=== PATIENT | male | born 1960 | race Caucasian/White ===

== ENCOUNTER → 2016-10-22 | Outpatient (CLI) | payer OTHER ==
--- NOTE | 2016-10-22 15:13 | CT ---
EXAMINATION TYPE: CT brain wo con DATE OF EXAM: 10/22/2016 COMPARISON: Prior CT brain 07/15/2015 HISTORY: Abn gait, Lt facial droop, history of TIAs CT DLP: 1168 mGycm Automated exposure control for dose reduction was used. FINDINGS: There is no hemorrhage or hydrocephalus. Mild cortical atrophy is stable. Brain density is unchanged. Cerebral vascular calcifications noted along the internal carotid artery on the right. IMPRESSION: EXAM IS STABLE, NO ACUTE BRAIN ABNORMALITY IS EVIDENT
== END | disposition home or self-care (01) ==
LOC: RADCTMAIN 12:17
PROVIDERS: ATTEND Family Medicine
DX: R26.89 Other abnormalities of gait and mobility (principal)
CPT/HCPCS: 70450

== ENCOUNTER → 2017-09-16 | Outpatient (CLI) | payer OTHER ==
--- NOTE | 2017-09-16 15:26 | CT ---
EXAMINATION TYPE: CT brain wo/w con DATE OF EXAM: 09/16/2017 COMPARISON: 10/22/2016 HISTORY: 56-year-old male Personal history of TIA. TECHNIQUE: Examination was done in axial plane without intravenous contrast. Coronal and sagittal r econstructions performed. CT DLP: 2309 mGycm Automated exposure control for dose reduction was used. FINDINGS: There is no evidence of acute intracranial hemorrhage, acute ischemic changes, mass, mass-effect, or extra-axial fluid collection. There is no effacement of cerebral sulci or basal subarachnoid cister ns. There is no hydrocephalus. There is no midline shift. Black-white matter distinction is preserv ed. No abnormal intracranial enhancing lesions. Dural venous sinuses are patent. Paranasal sinuses and mastoid air cells are well pneumatized. Orbits and globes are intact. IMPRESSION: No acute intracranial abnormality seen. No intracranial enhancing lesions.
== END | disposition home or self-care (01) ==
LOC: RADCTMAIN 12:38
PROVIDERS: ATTEND Family Medicine
DX: G45.9 Transient cerebral ischemic attack, unspecified (principal)
CPT/HCPCS: 70470; Q9967

== ENCOUNTER 2017-10-27 18:20 | Emergency (ER) | payer OTHER ==
--- NOTE | 2017-10-27 19:45 | XR ---
EXAMINATION TYPE: XR forearm RT DATE OF EXAM: 10/27/2017 COMPARISON: NONE HISTORY: Forearm pain TECHNIQUE: 2 views FINDINGS: There is subcutaneous edema around the forearm. I see no fracture nor dislocation. Wrist ammy int and elbow joint appear intact. IMPRESSION: Subcutaneous edema.
--- NOTE | 2017-10-27 19:46 | XR ---
EXAMINATION TYPE: XR hand complete RT DATE OF EXAM: 10/27/2017 COMPARISON: NONE HISTORY: Pain and injury TECHNIQUE: 3 views FINDINGS: I see no fracture nor dislocation. There is minor spurring of the IP joints. There are no e rosions. There is no subluxation. Metacarpals are intact. IMPRESSION: Mild osteoarthritic changes. No fracture seen.
--- NOTE | 2017-10-27 19:58 | ED ---
General Adult HPI - General Chief complaint: Extremity Injury, Upper Stated complaint: [facility] - RT ARM INJURY Time Seen by Provider: 10/27/17 18:48 Source: patient Mode of arrival: ambulatory Limitations: no limitations - History of Present Illness Initial comments: 56 year old male presents to the emergency department for a chief complaint of right arm pain x 2 hours. Patient states he was at work when a 200-lb metal bar fell on his right arm. Patient states the pain is in his forearm wrist and hand. Patient denies hitting his head or any other injuries. Patient states he can move the wrist but it is somewhat painful. Patient denies pain in the elbow or shoulder. Patient has no other complaints at this time including shortness of breath, chest pain, abdominal pain, nausea or vomiting, headache, or visual changes. - Related Data Previous Rx's Medication Instructions Recorded predniSONE 80 mg PO DAILY #28 tab 07/15/15 valACYclovir HCL [Valtrex] 1,000 mg PO Q8HR #30 tab 07/15/15 Ibuprofen [Motrin] 600 mg PO Q6HR PRN #20 tab 10/27/17 Allergies Allergy/AdvReac Type Severity Reaction Status Date / Time cephalexin monohydrate Allergy Unknown Verified 07/14/15 23:53 [From Keflex] venom-honey bee Allergy Unknown Verified 07/14/15 23:53 [bee venom (honey bee)] Review of Systems ROS Statement: Those systems with pertinent positive or pertinent negative responses have been documented in the HPI. ROS Other: All systems not noted in ROS Statement are negative. Past Medical History Past Medical History: Coronary Artery Disease (CAD), CVA/TIA, Myocardial Infarction ([place]) History of Any Multi-Drug Resistant Organisms: None Reported Past Surgical History: Orthopedic Surgery Additional Past Surgical History / Comment(s): Carpal tunnel juanjo hands; knee surg Past Psychological History: No Psychological Hx Reported Smoking Status: Current every day smoker Past Alcohol Use History: None Reported Past Drug Use History: None Reported General Exam Limitations: no limitations General appearance: alert, in no apparent distress Head exam: Present: atraumatic, normocephalic, normal inspection Eye exam: Present: normal appearance ENT exam: Present: normal exam, normal oropharynx, mucous membranes moist, TM's normal bilaterally Neck exam: Present: normal inspection, full ROM. Absent: tenderness, meningismus, lymphadenopathy Respiratory exam: Present: normal lung sounds bilaterally. Absent: respiratory distress, wheezes, rales, rhonchi, stridor Cardiovascular Exam: Present: regular rate, normal rhythm, normal heart sounds. Absent: systolic murmur, diastolic murmur, rubs, gallop, clicks Extremities exam: Present: tenderness (Tenderness to the distal dorsal right forearm as well as the right hand.), normal capillary refill (Refill less than 2 seconds and radial pulse 2+ in the right upper extremity.), joint swelling ( Patient does have moderate swelling noted of the right dorsal hand and wrist. There is mild ecchymosis of the dorsal right hand.), other (Sensation intact in the right upper extremity in all 5 digits.). Absent: full ROM (Patient has about 30 flexion and extension of the right wrist. Full range of motion of the right elbow. Patient does have some limited range motion of the digits in the right hand due to pain but can flex and extend all of the digits and joints somewhat.) Course Vital Signs 10/27/17 18:38 Temperature 97.3 F L Pulse Rate 109 H Respiratory 16 Rate Blood Pressure 146/96 O2 Sat by Pulse 98 Oximetry Medical Decision Making - Medical Decision Making 56-year-old male presents to the emergency department for a chief complaint of right arm pain 1 hour. Patient states a 200 pound metal bar fell on his right arm. Patient did not sustain any injuries. Patient has somewhat limited range of motion of the right wrist and digits of the right hand but can flex and extend all joints. Mild ecchymosis noted of the dorsal right hand as well as some swelling in the hand and wrist. No signs of infection. Neurovascular intact. Patient was offered pain medication which she refused. Patient was given ice. X-ray of the right forearm shows subcutaneous edema. No fracture or dislocation. Wrist joint and elbow appear intact. X-ray of the right hand shows no fracture or dislocation. Mild osteoarthritic changes. Patient likely has a contusion of the arm and hand. He was educated that if symptoms do not resolve in 7-10 days he may need repeat x-rays. He was also educated on the concerns for crush injury including compartment syndrome and to watch for these symptoms. He will take Motrin for pain. He will rest ice and elevate. He will return to the emergency department if he has any worsening symptoms. He will follow up with primary care and [facility] in one to 2 days. Disposition Clinical Impression: Contusion of arm, right, Hand pain, right Disposition: HOME SELF-CARE Condition: Good Instructions: Arm Pain (ED), RICE Therapy (ED) Additional Instructions: Please take Motrin or Tylenol for pain. Please rest, ice, and elevate the right arm. Use John wrap as necessary. Follow-up with primary care in 1-2 days. Return to the emergency department if you have any worsening symptoms such as severe swelling, numbness in the hand, or any other concerns. Prescriptions: Ibuprofen [Motrin] 600 mg PO Q6HR PRN #20 tab PRN Reason: Pain Is patient prescribed a controlled substance at d/c from ED?: No Referrals: Byron Gilbert Jr, [Primary Care Provider] - 1-2 days Time of Disposition: 20:00
[2017-10-27 20:00] VITALS: BP 162/97; PULSE 101; RESP 18; TEMP 98.9
== END 2017-10-27 20:13 | disposition home or self-care (01) ==
LOC: EC 18:20
DX: S40.021A Contusion of right upper arm, initial encounter (principal); F17.200 Nicotine dependence, unspecified, uncomplicated; Z88.1 Allergy status to other antibiotic agents; Z91.030 Bee allergy status; W20.8XXA Other cause of strike by thrown, projected or falling object, initial encounter; Y99.0 Civilian activity done for income or pay
CPT/HCPCS: 99283

== ENCOUNTER → 2017-10-31 | Outpatient (CLI) | payer OTHER ==
--- NOTE | 2017-10-31 11:46 | US ---
EXAMINATION TYPE: US venous doppler duplex UE RT DATE OF EXAM: 10/31/2017 COMPARISON: NONE CLINICAL HISTORY: 56-year-old male Crush right forearm S57.81XO. 250 lbs ranjit fell on arm 10/27/2017. Bruising. No history of blood clots. Not on blood thinners. Slight swelling. No redness. SIDE PERFORMED: Right TECHNIQUE:Grayscale, color doppler, spectral doppler imaging performed of the deep veins of the right upper extremity. FINDINGS: Internal jugular, subclavian, axillary, brachial, radial/ulnar veins as well as the basilic vein were interrogated. Right Arm: Negative for DVT IMPRESSION: No evidence for DVT within the right upper extremity.
== END | disposition home or self-care (01) ==
LOC: RADUSWWP 10:47
PROVIDERS: ATTEND Emergency Medicine
DX: S57.81XD Crushing injury of right forearm, subsequent encounter (principal)

== ENCOUNTER 2018-02-02 16:21 | Emergency (ER) | payer OTHER ==
[2018-02-02 16:28] VITALS: RESP 18
[2018-02-02] MEDS ORDERED: HYDROcodone/APAP 5-325MG 1 EACH TAB PO STA (16:38)
[2018-02-02] MEDS ORDERED: IBUPROFEN 600 MG TAB PO STA (16:38)
--- NOTE | 2018-02-02 16:42 | ED ---
Upper Extremity HPI - General Chief Complaint: Extremity Injury, Upper Stated Complaint: Hand injury Time Seen by Provider: 02/02/18 16:36 Source: patient Mode of arrival: ambulatory Limitations: no limitations - History of Present Illness Initial Comments: 57-year-old male patient presents to the emergency department today for evaluation of left hand pain and swelling. Patient states he was at work and trying to pry a bar loose from a machine when the bar released and struck him in the back of the hand. Patient states he is having significant pain and swelling to the area. Patient states that he was seen and evaluated at [facility] they did perform breath alcohol testing however were unable to provide x-ray. Patient states he did take Tylenol for pain however this is not helping. Patient has had ice on the hand. He denies any numbness or tingling to the hand. Denies any wrist pain or difficulty with range of motion. He denies any other injuries or concerns. Patient denies any headache, neck pain, back pain, chest pain, shortness of breath, dizziness, weakness, abdominal pain, nausea, vomiting, or difficulties with bowel movements or urination. - Related Data Previous Rx's Medication Instructions Recorded predniSONE 80 mg PO DAILY #28 tab 07/15/15 valACYclovir HCL [Valtrex] 1,000 mg PO Q8HR #30 tab 07/15/15 Ibuprofen [Motrin] 600 mg PO Q6HR PRN #20 tab 10/27/17 Allergies Allergy/AdvReac Type Severity Reaction Status Date / Time cephalexin monohydrate Allergy Unknown Verified 02/02/18 16:28 [From Keflex] venom-honey bee Allergy Unknown Verified 02/02/18 16:28 [bee venom (honey bee)] Review of Systems ROS Statement: Those systems with pertinent positive or pertinent negative responses have been documented in the HPI. ROS Other: All systems not noted in ROS Statement are negative. Past Medical History Past Medical History: Coronary Artery Disease (CAD), CVA/TIA, Myocardial Infarction ([place]) Additional Past Medical History / Comment(s): sinus tach History of Any Multi-Drug Resistant Organisms: None Reported Past Surgical History: Orthopedic Surgery Additional Past Surgical History / Comment(s): Carpal tunnel juanjo hands; knee surg Past Psychological History: No Psychological Hx Reported Smoking Status: Current every day smoker Past Alcohol Use History: Rare Past Drug Use History: None Reported General Exam Limitations: no limitations General appearance: alert, in no apparent distress, other (This is a well- developed, well-nourished adult male patient in no acute distress. Vital signs upon presentation are temperature 98.2F, pulse 106, respirations 18, blood pressure 146/93, pulse ox 97% on room air.) Eye exam: Present: normal appearance, PERRL, EOMI. Absent: scleral icterus, conjunctival injection, periorbital swelling Respiratory exam: Present: normal lung sounds bilaterally. Absent: respiratory distress, wheezes, rales, rhonchi, stridor Cardiovascular Exam: Present: regular rate, normal rhythm, normal heart sounds. Absent: systolic murmur, diastolic murmur, rubs, gallop, clicks Extremities exam: Present: full ROM, tenderness (Patient has tenderness to the dorsal aspect of the left hand), normal capillary refill, other (Patient has significant soft tissue swelling and ecchymosis noted to the dorsal aspect of the left hand. Patient has mild finger swelling. Patient has full range of motion of fingers and wrist. Skin is otherwise pink, warm, and dry. Cap refills less than 3 seconds. Radial pulses 2+ and equal bilaterally.). Absent : normal inspection, pedal edema, joint swelling, calf tenderness Neurological exam: Present: alert, oriented X3, CN II-XII intact Psychiatric exam: Present: normal affect, normal mood Skin exam: Present: warm, dry, intact, normal color. Absent: rash Course Vital Signs 02/02/18 02/02/18 16:25 17:32 Temperature 98.2 F 97.8 F Pulse Rate 106 H 89 Respiratory 18 18 Rate Blood Pressure 146/93 143/86 O2 Sat by Pulse 97 98 Oximetry Medical Decision Making - Medical Decision Making 57-year-old male patient presents to the emergency department today for evaluation of injury to the left hand. Physical examination did reveal extensive soft tissue swelling and ecchymosis to the dorsal aspect of the left hand. X-ray was obtained and showed no acute fractures or dislocations. Did discuss diagnosis of hematoma. Given the extent of the swelling and pain there is concern for tenderness injury. Patient will be discharged with John wrap and instructed to follow-up with orthopedic specialty. He is instructed to take Tylenol Motrin for pain control. Educated regarding rest, ice, elevation. He is instructed to follow-up with his primary care physician for recheck in 1-2 days. Return parameters discussed in detail. He verbalizes understanding and agrees with this plan. - Radiology Data Radiology results: report reviewed, image reviewed 3 views of the left hand are obtained. Distortion of the tuft of the third digit block and appears chronic. From an oral station, joint spaces, and alignment are essentially normal. No radiopaque foreign body. There is soft tissue swelling. Small ossific density dorsal to the second distal interphalangeal joint is thought to be chronic, is well-corticated. Impression by Dr. Fernández shows no acute fracture or dislocation per correlate for history of trauma to the distal third digit. Disposition Clinical Impression: Contusion of left hand Disposition: HOME SELF-CARE Condition: Good Instructions: Contusion in Adults (ED), Hematoma (ED) Additional Instructions: Keep John wrap in place for comfort, support, and management of swelling. Take Tylenol and Motrin for pain control. Keep hand elevated. Apply ice 20 minutes at a time at least 3-4 times daily. Follow-up with orthopedics for further evaluation. Return here immediately for any new, worsening, or concerning symptoms. Is patient prescribed a controlled substance at d/c from ED?: No Referrals: Byron Gilbert Jr, DO [Primary Care Provider] - 1-2 days Nacho Sim DO [Doctor of Osteopathic Medicine] - 1-2 days Time of Disposition: 17:16
--- NOTE | 2018-02-02 17:05 | XR ---
Left hand HISTORY: Trauma and pain 3 views of the left hand Distortion of the tuft of the third digit of the left hand appears chronic. Bone mineralization, join t spaces and alignment are essentially normal. No radiopaque foreign body. There is soft tissue swell ing. Small ossific density dorsal to the second distal interphalangeal joint is thought to be chronic , is well-corticated. IMPRESSION: No acute fracture or dislocation. Correlate for history of trauma to the distal third dig it.
[2018-02-02 17:34] VITALS: BP 143/86; PULSE 89; TEMP 97.8
== END 2018-02-02 17:34 | disposition home or self-care (01) ==
LOC: EC 16:21
DX: S60.222A Contusion of left hand, initial encounter (principal); F17.200 Nicotine dependence, unspecified, uncomplicated; Z88.1 Allergy status to other antibiotic agents; Z91.030 Bee allergy status; W31.89XA Contact with other specified machinery, initial encounter; Y92.69 Other specified industrial and construction area as the place of occurrence of the external cause; Y99.0 Civilian activity done for income or pay
CPT/HCPCS: 99283

== ENCOUNTER → 2018-02-12 | Outpatient (CLI) | payer OTHER ==
--- NOTE | 2018-02-12 14:47 | XR ---
EXAMINATION TYPE: XR hand complete LT DATE OF EXAM: 02/12/2018 CLINICAL HISTORY: Continued pain swelling and redness after injury 10 days ago. TECHNIQUE: Frontal, lateral and oblique images of the left left hand x-ray from 10 days earlier. autumn ling are obtained. COMPARISON: None. FINDINGS: There is redemonstration of distortion of the distal aspect of the third distal phalanx fel t to reflect old malunion fracture seen best lateral view. There is no acute fracture/dislocation bigg dent in the left hand. Moderate radial spurring first interphalangeal joint is redemonstrated with mi ld joint space loss. The overlying soft tissue appears unremarkable. IMPRESSION: There is no acute fracture or dislocation in the left hand. No significant change from p rior.
== END | disposition home or self-care (01) ==
LOC: RADXRMAIN 14:16
PROVIDERS: ATTEND Emergency Medicine
DX: S60.222D Contusion of left hand, subsequent encounter (principal)

== ENCOUNTER → 2018-08-14 | Outpatient (CLI) | payer OTHER ==
--- NOTE | 2018-08-14 20:36 | CT ---
"EXAMINATION TYPE: CT brain wo con DATE OF EXAM: 08/14/2018 COMPARISON: 09/16/2017 HISTORY: Personal hx tia. Pt states he had one last week. Sx LT side weakness, aphasia, memory loss CT DLP: 1308 mGycm Automated exposure control for dose reduction was used. FINDINGS: Dental artifact results in mild limitation exam. There is a tiny hyperdensity within the renny measuring 2 mm. This is too small to characterize. And n ot seen on multiple prior exam.. There is no effacement of cerebral sulci or basal subarachnoid ciste rns. There is no hydrocephalus. There is no midline shift. Black-white matter distinction is preserved . IMPRESSION: TINY 2 MM HYPERDENSITY WITHIN THE RENNY IS TOO SMALL TO CHARACTERIZE. PETECHIAL HEMORRHAGE NOT EXCLUDE D. FINDINGS NOT SEEN ON PRIOR EXAMS. RECOMMEND MRI. REPORT CALLED TO REFERRING PHYSICIAN. A Red level critical message alert has been initiated for Byron Gilbert Jr, DO via the [employer] [address] 0 | Critical Results System on 08/14/2018 8:33 PM. This message alert has been sent to Byron Gilbert Jr, DO via the preferences provided by the clinician for the receipt of Radiology Critical Findings. Message ID [id number]."
== END | disposition home or self-care (01) ==
LOC: RADCTMAIN 15:33
PROVIDERS: ATTEND Family Medicine
DX: G93.89 Other specified disorders of brain (principal); R42 Dizziness and giddiness; R47.01 Aphasia; Z88.1 Allergy status to other antibiotic agents; Z88.8 Allergy status to other drugs, medicaments and biological substances
CPT/HCPCS: 70450

== ENCOUNTER → 2018-11-24 | Outpatient (CLI) | payer OTHER ==
--- NOTE | 2018-11-24 21:30 | CONS ---
CONSULTATION This is a consultation note for sleep apnea. 58-year-old male patient, primary of Dr. Kimble who was coming in for sleep apnea evaluation. The patient has been considered to have a high clinical suspicion of obstructive sleep apnea based on his history of snoring, witnessed apneas, sleep fragmentation, excessive hypersomnia and sleepiness during the day. He goes to bed around 10 p.m., wakes up at 5:30 am in the morning and he wakes up tired and sleepy and he has issues with memory and concentration during the day. He occasionally wakes up gasping for air. He wakes up somewhere between 4-10 times in the middle of the night. On a few occasions he gets up to urinate. He is able to go back to sleep without any major difficulties. No sleep paralysis. No hallucinations. No cataplexy. No restlessness in lower extremities. No leg kicks. No leg cramping. No anxiety or panic attacks. No palpitations. He has sinus tachycardia. 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 History of recurrent TIAs. PAST SURGICAL HISTORY: Includes bilateral carpal tunnel release and arthroscopic right knee surgery. DRUG ALLERGIES: DRUG ALLERGIES ARE TO KEFLEX. OUTPATIENT MEDICATION LIST: Includes aspirin 81 mg p.o. daily. Zoloft 100 daily, Norvasc 10 mg p.o. daily, Pravastatin 80 mg p.o. daily, losartan 100 mg p.o. daily, potassium chloride 10 mEq daily. Lasix 40 mg p.o. daily. SOCIAL HISTORY: He smokes around 7-8 cigarettes a day. No history of alcohol. No history of IV drugs. He used to work for [employer]. Currently he is on short-term disability. FAMILY HISTORY: Father had passed from esophageal cancer. Negative family history of obstructive sleep apnea. REVIEW OF SYSTEMS: Fourteen-point review of system was done. Positive findings are mentioned in history of present illness. No recent weight gain or weight loss. His weight fluctuates yet for the most part it has been stable. The patient occasionally wakes up choking and gasping for air. No restlessness in the lower extremities. He has tachycardia, sinus in nature. No palpitations. No heartburn. No angina. No pleurisy. No hemoptysis. No nausea, vomiting, no diarrhea. No abdominal pain. No dysuria or hematuria. No frequency or urgency. No falls. No skin ulceration. No wounds. No altered mentation. He still has some left-sided weakness and some occasional speech deficits with stroke. PHYSICAL EXAMINATION: BP is 137/86, pulse 108, respirations 18, temperature 98.5, saturation 96% on room air. Height is 5 feet 7 inches, weight is 288, and Cove score 13. BMI 44.7, neck size 18.5 inches. GENERAL APPEARANCE: Calm, comfortable. HEENT: Head is atraumatic, normocephalic. NECK: Supple. There is no JVD. No goiter or neck masses. Mallampati class 4. LUNGS: Diminished, otherwise clear. HEART sounds are regular rate, rhythm. Normal S1, S2. No S3, S4. No murmurs. ABDOMEN: Soft, nontender. No organomegaly. EXTREMITIES: No edema. No cyanosis or clubbing. NEUROLOGIC: Alert and oriented x3. There are no focal neurological deficits. PSYCHIATRIC: Negative for any anxiety or depression. IMPRESSION: 1. Hypersomnia, Cove score of 13 along with loud snoring, witnessed apneas, sleep fragmentation, excessive tiredness and sleepiness during the day. High clinical suspicion for obstructive sleep apnea. 2. Obesity with a BMI of 44.7. 3. Hypersomnia Cove score of 13. 4. Sinus tachycardia. 5. Hypertension. 6. Hyperlipidemia. 7. History of cerebrovascular accident with left-sided weakness and speech deficits. 8. History of transient ischemic attacks. PLAN: 1. Encourage weight loss. 2. Implement good sleep hygiene measures. 3. In lab sleep study for screening this patient for any form of sleep breathing disorder and treat accordingly. MMODL / IJN: [id number] /
== END | disposition home or self-care (01) ==
LOC: SLEEP 14:13
PROVIDERS: ATTEND Internal Medicine Critical Care Medicine
DX: G47.10 Hypersomnia, unspecified (principal); R06.83 Snoring; R06.81 Apnea, not elsewhere classified; E66.9 Obesity, unspecified; R00.0 Tachycardia, unspecified; I10 Essential (primary) hypertension; E78.5 Hyperlipidemia, unspecified; I69.354 Hemiplegia and hemiparesis following cerebral infarction affecting left non-dominant side; F17.210 Nicotine dependence, cigarettes, uncomplicated; Z68.41 Body mass index [BMI] 40.0-44.9, adult; Z79.82 Long term (current) use of aspirin; Z79.899 Other long term (current) drug therapy; Z88.1 Allergy status to other antibiotic agents
CPT/HCPCS: 99211

== ENCOUNTER 2019-02-12 18:16 | Emergency (ER) | payer OTHER ==
[2019-02-12 18:50] VITALS: TEMP 98.1
[2019-02-12] MEDS ORDERED: KETOROLAC 60 MG/2 ML VIAL IM STA (19:45)
--- NOTE | 2019-02-12 20:05 | XR ---
EXAMINATION TYPE: XR hand complete LT DATE OF EXAM: 02/12/2019 COMPARISON: 02/12/2018 HISTORY: Pain TECHNIQUE: 3 views. FINDINGS: Metacarpals are intact. I see no fracture nor dislocation. There is deformity of the distal phalanx of the middle finger consistent with an old healed fracture. There is some spurring at the DIP joint of the index finger. Carpal bones appear intact. IMPRESSION: No acute abnormality of the left hand. No change.
[2019-02-12 20:26] VITALS: BP 149/92; PULSE 74; RESP 18
--- NOTE | 2019-02-12 20:40 | ED ---
General Adult HPI - General Chief complaint: Extremity Problem,Nontraumatic Stated complaint: Hand/wrist pain Time Seen by Provider: 02/12/19 19:27 Source: patient, RN notes reviewed, old records reviewed Mode of arrival: ambulatory Limitations: no limitations - History of Present Illness Initial comments: 58-year-old male patient presents ED chief complaint of left hand pain. Patient does report that he has carpal tunnel syndrome. Patient reports that this has been ongoing for 2 days. Started with his first metacarpal left hand. Now patient has pain in the dorsal aspect of the hand. Denies any injury, denies any cut, abrasion. Denies all other complaints. Systemic: Pt denies fatigue, fever/chills, rash. Pt denies weakness, night sweats, weight loss. Neuro: Pt denies headache, visual disturbances, syncope or pre-syncope. HEENT: Pt denies ocular discharge or irritation, otalgia, rhinorrhea, pharyngitis or notable lymphadenopathy. Cardiopulmonary: Pt denies chest pain, SOB, heart palpitations, dyspnea on exertion. Abdominal/GI: Pt denies abdominal pain, n/v/d. : Pt denies dysuria, burning w/ urination, frequency/urgency. Denies new onset urinary or bowel incontinence. MSK: Pt denies loss of strength or function in extremities. Neuro: Pt denies new onset weakness, paresthesias. - Related Data Previous Rx's Medication Instructions Recorded predniSONE 80 mg PO DAILY #28 tab 07/15/15 valACYclovir HCL [Valtrex] 1,000 mg PO Q8HR #30 tab 07/15/15 Ibuprofen [Motrin] 600 mg PO Q6HR PRN #20 tab 10/27/17 Allergies Allergy/AdvReac Type Severity Reaction Status Date / Time cephalexin monohydrate Allergy Unknown Verified 02/12/19 18:50 [From Keflex] venom-honey bee Allergy Unknown Verified 02/12/19 18:50 [bee venom (honey bee)] Review of Systems ROS Statement: Those systems with pertinent positive or pertinent negative responses have been documented in the HPI. ROS Other: All systems not noted in ROS Statement are negative. Past Medical History Past Medical History: Coronary Artery Disease (CAD), CVA/TIA, Myocardial Infarction ([place]) Additional Past Medical History / Comment(s): sinus tach History of Any Multi-Drug Resistant Organisms: None Reported Past Surgical History: Orthopedic Surgery Additional Past Surgical History / Comment(s): Carpal tunnel juanjo hands; knee surg Past Psychological History: No Psychological Hx Reported Smoking Status: Current every day smoker Past Alcohol Use History: Rare Past Drug Use History: None Reported General Exam - General Exam Comments Initial Comments: Constitutional: NAD, AOX3, Pt has pleasant affect. HEENT: NC/AT, trachea midline, neck supple, no lymphadenopathy. Posterior pharynx non erythematous, without exudates. External ears appear normal, without discharge. Mucous membranes moist. Eyes PERRLA, EOM intact. There is no scleral icterus. No pallor noted. Cardiopulmonary: RRR, no murmurs, rubs or gallops, no JVD noted. Lungs CTAB in anterior and posterior hernandez. No peripheral edema. Abdominal exam: Abdomen soft and non-distended. Abdomen non-tender to palpation in all 4 quadrants. Bowel sounds active in LLQ. No hepatosplenomegaly. No ecchymosis Neuro: CN II-XII grossly intact. No nuchal rigidity. No raccon eyes, no dale sign, no hemotympanum. No cervical spinal tenderness. MSK: Dorsal aspect of left hand moderately tender to palpation. No swelling or skin changes. Range of motion is intact. Neurovascularly intact. No posterior calf tenderness bilaterally, homans sign negative bilaterally. Posterior tibialis and radial pulse +2 bilaterally. Sensation intact in upper and lower extremities. Full active ROM in upper and lower extremities, 5/5 stregnth. Limitations: no limitations Course Vital Signs 02/12/19 02/12/19 18:48 20:25 Temperature 98.1 F Pulse Rate 98 74 Respiratory 20 18 Rate Blood Pressure 158/106 149/92 O2 Sat by Pulse 99 100 Oximetry Medical Decision Making - Medical Decision Making 58-year-old male patient presents to ED chief complaint of left hand pain. Has been ongoing for 2 days. Physical exam displayed dorsal aspect of hand mildly tender to palpation. No skin changes, no swelling. Plain film hand displayed no acute process. Patient fully much improved after Toradol shot. Offered patient initial investigations including blood work. Patient declined. Patient to follow up with primary care provider and orthopedic consult symptoms persist. Case discussed with Dr. Dai. Disposition Clinical Impression: Hand pain Disposition: HOME SELF-CARE Condition: Stable Instructions (If sedation given, give patient instructions): Arthralgia (ED) Additional Instructions: Patient to adhere to previously discussed treatment plan and will take medication(s) as directed. Patient to follow up with PCP in 1-2 days. Patient to return to ED if symptoms do not improve. Continue using nonsteroidal anti-inflammatories as needed for pain. Follow up first with primary care provider. If symptoms do persist follow up with orthopedic hand surgeon. Return to ER if condition worsens in any way. Is patient prescribed a controlled substance at d/c from ED?: No Referrals: Byron Gilbert Jr, DO [Primary Care Provider] - 1-2 days Manuel Cruz DO [Medical Doctor] - 1-2 days
== END 2019-02-12 20:45 | disposition home or self-care (01) ==
LOC: EC 18:16
DX: M79.642 Pain in left hand (principal); I25.2 Old myocardial infarction; F17.200 Nicotine dependence, unspecified, uncomplicated; Z88.1 Allergy status to other antibiotic agents; Z91.030 Bee allergy status; Z86.73 Personal history of transient ischemic attack (TIA), and cerebral infarction without residual deficits
CPT/HCPCS: 73130; 99284; 96372; J1885

== ENCOUNTER → 2019-05-18 | Outpatient (CLI) | payer OTHER ==
--- NOTE | 2019-05-18 19:49 | PN ---
PROGRESS NOTE This is a 58-year-old male patient with severe obstructive sleep apnea with an AHI of 99.5. The patient currently is undergoing treatment with BiPAP at the pressure of 22/80 cm of water. He is happy with his treatment. He is waking up refreshed and alert. He reports marked improvement in his energy level and stamina. He has gained around 10 pounds since his last evaluation. Based on the compliance data on his BiPAP, he has been utilizing his machine every night without any interruption. His compliancy for more than 4 hours is 100%, averaging around 8.7 hours of BiPAP use per night. His leak around 36 liters/minute. Tidal volume is at 660. Respiratory rate is at 14 with a minute ventilation of 9.5 L/minute. His AHI is down to 12.9. I noted the leak. He is using a medium-sized Simplus full-face mask. REVIEW OF SYSTEMS: Fourteen-point review of systems was done. Positive findings were all mentioned above in the history of present illness. PHYSICAL EXAMINATION: VITAL SIGNS: BP is 144/83, pulse 97, respirations 18, temperature 97.5. Weight is 298. [place] score is 7. Saturation 96% on room air. GENERAL APPEARANCE: Calm, comfortable. HEAD: Atraumatic, normocephalic. NECK: Supple. No JVD. No goiter or neck masses. LUNGS: Clear to auscultation. HEART: Heart sounds are regular rate and rhythm. Normal S1, S2. No S3, S4. No murmurs. ABDOMEN: Obese, soft, nontender. Organs cannot be palpated. EXTREMITIES: No edema. No cyanosis or clubbing. SKIN: Negative for any wounds or ulceration. NEUROLOGIC: Awake and alert. No focal neurological deficits. IMPRESSION: 1. Severe obstructive sleep apnea; apnea-hypopnea index of 99. Currently on BiPAP at a pressure of 22/18 with excellent clinical response. The AHI has dropped down to 12 and we can achieve better results by shortening the RAMP time and eliminating the leaks. 2. Obesity with interval 10-pound weight gain. Current weight is up to 98. 3. Hypersomnia, improved. PLAN: 1. Continue BiPAP at the same level of pressure, 22/18. 2. Use an AirFit F20 medium-sized full-face mask with a silent elbow. 3. Switching the mask will improve the leaks and improve the apnea score while on treatment. 4. Suggested dropping the RAMP time down to a shorter period, yet the patient wanted to keep it at 45 minutes. Will continue to follow and make further recommendations based on his progress. See me back in a year's time. ALEXANDRA / RENY: [id number] /
== END | disposition home or self-care (01) ==
LOC: SLEEP 15:44
PROVIDERS: ATTEND Internal Medicine Critical Care Medicine
DX: G47.33 Obstructive sleep apnea (adult) (pediatric) (principal); G47.10 Hypersomnia, unspecified; E66.9 Obesity, unspecified

== ENCOUNTER → 2019-06-02 | Outpatient (CLI) | payer OTHER ==
[2019-06-02 18:59] LABS: African American GFR (CKD) 130.3 (60.0-200.0); Albumin 4.6 g/dL (3.80-4.90); Albumin/Globulin Ratio 2.19 (1.60-3.17); Anion Gap 7.4 mmol/L (4.00-12.00); BUN/Creat Ratio 28.33 Ratio (12.00-20.00); Carbon Dioxide 27.6 mmol/L (21.6-31.8); Globulin 2.1 g/dL (1.6-3.3); Non-African American GFR(CKD) 112.4 (60.0-200.0); Potassium 4.2 mmol/L (3.5-5.5); Total Bilirubin 0.3 mg/dL (0.2-1.2); Total Protein 6.7 g/dL (6.2-8.2)
== END | disposition home or self-care (01) ==
LOC: LABWHC1 11:33
PROVIDERS: ATTEND Family Medicine
DX: I10 Essential (primary) hypertension (principal); E66.09 Other obesity due to excess calories
CPT/HCPCS: 36415; 80053

== ENCOUNTER → 2019-09-02 | Outpatient (CLI) | payer OTHER ==
--- NOTE | 2019-09-07 10:56 | P.HOLTER ---
This is a 58-year-old gentleman being evaluated for symptoms of dizziness or lightheadedness. Baseline EKG shows sinus rhythm with a normal AK interval and QRS duration. Average heart rate is 87 with a minimum of 57 and maximum 128. Patient had occasional APCs. No ventricular arrhythmias are detected. Patient complained of being dizzy and lightheaded and also shortness of breath. He is also complaining of palpitations. Symptoms did not correlate with any cardiac events. Final impression: #1. Sinus rhythm. #2. Occasional APCs. #3. Patient's symptoms did not correlate with any cardiac events
== END | disposition home or self-care (01) ==
LOC: RADECHMAIN 11:35
PROVIDERS: ATTEND Family Medicine
DX: I49.3 Ventricular premature depolarization (principal); I10 Essential (primary) hypertension; R42 Dizziness and giddiness; Z88.1 Allergy status to other antibiotic agents; Z88.8 Allergy status to other drugs, medicaments and biological substances
CPT/HCPCS: 93225; 93226

== ENCOUNTER → 2021-11-19 | Outpatient (CLI) | payer OTHER ==
--- NOTE | 2021-11-19 10:45 | XR ---
EXAMINATION TYPE: XR chest 2V DATE OF EXAM: 11/19/2021 COMPARISON: 07/15/2015 HISTORY: Shortness of breath TECHNIQUE: Frontal and lateral views of the chest are obtained. FINDINGS: Scattered senescent parenchymal changes noted. Hyperinflation compatible with COPD. No evidence for infiltrate. No evidence for atelectasis. Heart size is stable. Mediastinal structures are stable and grossly unremarkable. No evidence for hilar prominence. Degenerative changes dorsal spine. IMPRESSION: 1. No evidence for acute pulmonary disease.
== END | disposition home or self-care (01) ==
LOC: RADXRMAIN 10:16
PROVIDERS: ATTEND Family Medicine
DX: D72.829 Elevated white blood cell count, unspecified (principal); R06.02 Shortness of breath
CPT/HCPCS: 71046

== ENCOUNTER → 2021-11-30 | Outpatient (CLI) | payer MEDICARE, OTHER ==
--- NOTE | 2021-11-30 14:58 | CT ---
EXAMINATION TYPE: CT abdomen pelvis wo con DATE OF EXAM: 11/30/2021 COMPARISON: None HISTORY: 61-year-old male D72.9, R31.9 Left sided flank pain and elevated WBC, hematuria. CT DLP: 1063 mGycm. Automated exposure control for dose reduction was used. TECHNIQUE: Contiguous axial scanning of the abdomen and pelvis without IV contrast. Coronal and sagit shlomo reconstructions performed. FINDINGS: Heart normal size without pericardial effusion. Lung bases clear without pleural effusion. Liver borderline in size at 17.4 cm. Diffuse low attenuation compatible with fatty infiltration. Smal l subcentimeter probable cysts are present in the liver measuring up to 9 mm. Noncontrast appearance of the gallbladder, spleen, and pancreas within normal limits. Bilateral nonobstructive nephrolithiasis, approximately 4 calculi on the right measuring up to 4 mm a nd one punctate 2 mm stone on the left. No hydronephrosis. Bilateral lipid rich adrenal adenomas measuring up to 3.0 cm right and 2.7 cm on the left. No dilated small bowel, free fluid, free air. No mesenteric or retroperitoneal lymphadenopathy. Normal appendix. Mild stool burden. There is left-sided colonic diverticulosis from the splenic flex ure to the proximal sigmoid. No pericolonic inflammatory change. Mild circumferential bladder wall thickening likely chronic. Prostate gland mildly enlarged at 5.0 cm wide. Patulous left inguinal canal. No abnormal fluid collection in pelvis or pelvic lymphadenopathy . Mild degenerative change of the hips. Degenerative changes left SI joint. Anterior endplate spondylos is lower thoracic spine. IMPRESSION: 1. Borderline size liver with moderate hepatic steatosis. Correlate with LFTs, lipid profile, and pa tient risk factors. 2. Bilateral nonobstructive nephrolithiasis measuring up to 4 mm. 3. Bilateral benign, lipid rich adrenal adenomas measuring up to 3.0 cm. 4. Left-sided colonic diverticulosis without evidence for acute diverticulitis. 5. Mild circumferential bladder wall thickening probably chronic hypertrophy given mild prostatic en largement at 5.0 cm wide.
== END | disposition home or self-care (01) ==
LOC: RADCTMAIN 10:27
PROVIDERS: ATTEND Family Medicine
DX: R31.9 Hematuria, unspecified (principal); K76.0 Fatty (change of) liver, not elsewhere classified; N20.0 Calculus of kidney; K57.30 Diverticulosis of large intestine without perforation or abscess without bleeding; N32.89 Other specified disorders of bladder; N40.0 Benign prostatic hyperplasia without lower urinary tract symptoms
CPT/HCPCS: 74176

== ENCOUNTER → 2024-05-18 | Outpatient (CLI) | payer MEDICARE, OTHER ==
[2024-05-18 14:01] VITALS: BP 118/84; PULSE 104; RESP 16; TEMP 98.1
--- NOTE | 2024-05-18 14:54 | P.SLEEP ---
History of Present Illness H&P Date: 05/18/24 63-year-old male patient, diagnosed having obstructive sleep apnea back in 2019. The patient was diagnosed having severe SAM with an AHI of 99.5 and subsequently the patient underwent a CPAP titration and the patient was given a BiPAP at a pressure of 22 over 18 cm of water. He was also offered an AirFit F20 fullface mask. Over the past 5 years, the patient has been extremely compliant to treatment and the patient states that he was unable to go to sleep without wearing his BiPAP machine. Around 5 months ago, his machine broke and has been off treatment. He feels terrible. He is snoring. He is excessively somnolent and sleepy. He is going to bed around 9 PM, waking up 5 AM in the [facility] [place], feels tired and fatigued and sleepy. He can easily fall asleep during day-to-day activities. His current [place] score is at 10. Note that his current body mass index is 36. Back in 2019, the patient's body mass index was 44.7 and he has lost approximately 40 to 50 pounds. The weight loss was facilitated by the use of Ozempic. He is also known to have multiple other comorbidities including history of coronary artery disease, diabetes mellitus, hypertension, hyperlipidemia and previous history of stroke that was complicated by some left-sided weakness. Patient is in need for a new BiPAP unit. No sleepwalking. No sleep talking. No parasomnias. No restlessness in lower extremities. No headaches. No altered mentation. Wakes up frequently middle of the night and his sleep is excessively fragmented and is feeling tired and fatigued throughout the day. Waking up choking and gasping for air. No nocturnal chest pain. No nocturnal shortness of breath. No anxiety or panic attacks. No heartburn. Review of Systems Constitutional: Reports daytime sleepiness, Reports fatigue Eyes: denies as per HPI, denies blurred vision, denies bulging eye, denies decreased vision, denies diplopia, denies discharge, denies dry eye, denies irritation, denies itching, denies pain, denies photophobia, denies loss of peripheral vision, denies loss of vision, denies tunnel vision/blind spots Ears: deny: decreased hearing, ear discharge, earache, tinnitus Ears, nose, mouth and throat: Reports as per HPI Breasts: absent: as per HPI, gynecomastia Cardiovascular: Reports as per HPI Respiratory: Reports as per HPI, Reports sleep apnea, Reports snoring Gastrointestinal: Reports as per HPI Genitourinary: Reports as per HPI Musculoskeletal: Reports as per HPI Musculoskeletal: absent: ankle pain, ankle stiffness, ankle swelling, as per HPI, elbow pain, elbow stiffness, elbow swelling, foot pain, foot stiffness, foot swelling, hand pain, hand stiffness, hand swelling, hip pain, hip stiffness, hip swelling, knee pain, knee stiffness, knee swelling, shoulder pain, shoulder stiffness, shoulder swelling, wrist pain, wrist stiffness, wrist swelling Integumentary: Reports as per HPI Neurological: Reports as per HPI Psychiatric: Reports as per HPI Endocrine: Reports as per HPI, Reports fatigue Hematologic/Lymphatic: Reports as per HPI Allergic/Immunologic: Reports as per HPI Past Medical History Past Medical History: Coronary Artery Disease (CAD), CVA/TIA, Diabetes Mellitus, Hyperlipidemia, Myocardial Infarction ([place]), Pneumonia, Sleep Apnea/CPAP/BIPAP (History of severe SAM with an AHI of 99, treated with BiPAP) Additional Past Medical History / Comment(s): sinus tach, back/knee pain, restless legs, nasal polyps Last Myocardial Infarction Date:: 2014 History of Any Multi-Drug Resistant Organisms: None Reported Past Surgical History: Orthopedic Surgery Additional Past Surgical History / Comment(s): Carpal tunnel juanjo hands; arthroscopic knee surgery Past Psychological History: No Psychological Hx Reported Smoking Status: Current some day smoker Past Alcohol Use History: Rare Past Drug Use History: None Reported - Past Family History Father Family Medical History: Cancer, Diabetes Mellitus, Hyperlipidemia Additional Family Medical History / Comment(s): Arthritis, Esophageal cancer Mother Family Medical History: Hyperlipidemia Additional Family Medical History / Comment(s): Arthritis, cancer (pancreatic), Medications and Allergies Home Medications and Allergies Comment(s): Medications include aspirin 81 mg p.o. daily, Lasix 40 mg p.o. daily, amlodipine 10 mg p.o. daily, pravastatin 80 mg p.o. daily, potassium 10 mEq daily, tizanidine 4 mg p.o. daily, chlorthalidone 25 mg p.o. daily, hydralazine 25 mg p.o. 3 times daily, Lyrica 150 mg p.o. daily, metformin 500 mg p.o. twice a day, insulin, Jardiance 10 mg p.o. daily and Ozempic 1 injection every week Drug allergies include Keflex Home Medications Medication Instructions Recorded Confirmed Type predniSONE [Deltasone] 80 mg PO DAILY #28 tab 07/15/15 Rx valACYclovir HCL [Valtrex] 1,000 mg PO Q8HR #30 tab 07/15/15 Rx Ibuprofen [Motrin] 600 mg PO Q6HR PRN #20 tab 10/27/17 Rx Allergies Allergy/AdvReac Type Severity Reaction Status Date / Time cephalexin monohydrate Allergy Unknown Verified 02/12/19 18:50 [From Keflex] venom-honey bee Allergy Unknown Verified 02/12/19 18:50 [bee venom (honey bee)] Physical Exam Vitals: Vital Signs Temp Pulse Resp BP Pulse Ox 05/18/24 13:57 98.1 F 104 H 16 118/84 97 Intake and Output 05/17/24 05/18/24 05/18/24 22:59 06:59 14:59 Other: Weight 104.326 kg The patient appeared well nourished and normally developed. Vital signs as documented. The patient has a body mass index of 36. Head exam is unremarkable. No scleral icterus or corneal arcus noted. Neck is without jugular venous distension, thyromegaly, or carotid bruits. Carotid upstrokes are brisk bilaterally. Mallampati class IV with significant crowding of the posterior pharynx. Lungs are clear to auscultation and percussion. Cardiac exam reveals the PMI to be normally sized and situated. Rhythm is regular. First and second heart sounds normal. No murmurs, rubs or gallops. Abdominal exam reveals normal bowel sounds, no masses, no organomegaly and no aortic enlargement. Extremities are nonedematous and both femoral and pedal pulses are normal. Examination of the skin revealed no evidence of significant rashes, suspicious appearing nevi or other concerning lesions. Neurologically, the patient is awake and alert and the patient does not have any focal neurological deficit. Cranial nerves are essentially intact. Assessment and Plan Plan: Severe symptomatic obstructive sleep apnea. Based on the sleep study that was done back in 2018, the patient had severe SAM with an AHI of 99 and he was treated with a BiPAP pressure of 22/18 cm of water. His machine broke appro ximately 5 months ago and the patient has been off treatment and is coming in for evaluation Chronic hypersomnia, [place] score is at 10 and his condition has gotten worse as the patient has been off treatment Obesity with significant weight loss in his current body mass index is 36, currently on Ozempic History of CVA with some residual left-sided weakness Hypertension Hyperlipidemia Coronary artery disease Degenerative arthritis Plan I do not see the need to repeat the patient's sleep study at this point. The patient obviously has severe symptomatic obstructive sleep apnea and he needs a machine replacement. Based on that, I am going to order a BiPAP machine for this patient at the same settings of 22/18 cm of water. He will be offered a a VPAP auto, preferably an air curve 11, along with an AirFit F20 fullface mask large size. Once the machine is delivered, the patient will do a compliance check with me in 30 to 90 days. Ultimately, my plan is to switch this patient to a VPAP auto as the patient has lost weight over the years while using Ozempic. Meanwhile, the patient was advised not to drive specially when is feeling drowsy or sleepy. Optimize comorbidities. Encouraged further weight loss. See me back in the office after obtaining his new BiPAP machine. Sleep Note - Sleep Data ESS Total: 10 - Sleep Note Sleep Note: Temperature: 98.1 F Pulse Rate: 104 Respiratory Rate: 16 Blood Pressure: 118/84 SpO2: 97 Height: 5 ft 7 in Weight: 104.326 kg BMI: Neck Circumference: 17.5
== END ==
LOC: 3 N SLEEP 13:14
PROVIDERS: ATTEND Internal Medicine Critical Care Medicine
DX: G47.33 Obstructive sleep apnea (adult) (pediatric) (principal); G47.10 Hypersomnia, unspecified; I10 Essential (primary) hypertension; E78.5 Hyperlipidemia, unspecified; I25.10 Atherosclerotic heart disease of native coronary artery without angina pectoris; M19.90 Unspecified osteoarthritis, unspecified site; E66.01 Morbid (severe) obesity due to excess calories; F17.210 Nicotine dependence, cigarettes, uncomplicated; Z86.73 Personal history of transient ischemic attack (TIA), and cerebral infarction without residual deficits; Z68.36 Body mass index [BMI] 36.0-36.9, adult; Z88.1 Allergy status to other antibiotic agents; Z91.030 Bee allergy status
CPT/HCPCS: 99211

== ENCOUNTER → 2024-09-22 | Outpatient (CLI) | payer MEDICARE, OTHER ==
[2024-09-22 15:53] LABS: Basophils # (A) 0.07 X 10*3/uL (0.00-0.10); Basophils % (A) 0.6 %; Eosinophils # (A) 0.34 X 10*3/uL (0.04-0.35); Eosinophils % (A) 2.9 %; HGB 16.9 g/dL (13.0-17.0); Lymphocytes # (A) 3.37 X 10*3/uL (0.90-5.00); Lymphocytes % (A) 28.5 %; MCH 26.7 pg (27.0-32.0); MCHC 31.9 g/dL (32.0-37.0); MCV 83.9 FL (80.0-97.0); Mean Platelet Volume 10.8 FL (9.5-12.2); Monocytes # (A) 0.75 X 10*3/uL (0.20-1.00); Monocytes % (A) 6.3 %; NRBC Per 100 WBC 0 X 10*3/uL (0.00-0.01); Neutrophils # (A) 7.26 X 10*3/uL (1.80-7.70); Neutrophils % (A) 61.4 %; Platelet Count 315 X 10*3/uL (140-440); RBC 6.32 X 10*6/uL (4.40-5.60); RDW 16.3 % (11.5-14.5); WBC 11.83 X 10*3/uL (4.50-10.00)
== END | disposition home or self-care (01) ==
LOC: LABWHC1 09:53
PROVIDERS: ATTEND Family Medicine
DX: I10 Essential (primary) hypertension (principal); D75.1 Secondary polycythemia; D72.829 Elevated white blood cell count, unspecified
CPT/HCPCS: 36415; 85025